=== PATIENT | female | born 1940 | race Caucasian/White ===

== ENCOUNTER → 2017-11-27 | Outpatient (RCR) | payer MEDICARE, OTHER | END | disposition home or self-care (01) | LOC: CR3 10-28 09:00 | DX: Z29.8 Encounter for other specified prophylactic measures (principal) ==

== ENCOUNTER 2017-12-27 08:30 | Outpatient (RCR) | payer MEDICARE, OTHER | END 2017-12-29 | disposition home or self-care (01) | LOC: CR3 08:30 | DX: Z29.8 Encounter for other specified prophylactic measures (principal) ==

== ENCOUNTER 2018-01-27 08:45 | Outpatient (RCR) | payer MEDICARE, OTHER | END 2018-01-29 | disposition home or self-care (01) | LOC: CR3 08:45 | DX: Z29.8 Encounter for other specified prophylactic measures (principal) ==

== ENCOUNTER 2018-02-26 10:10 | Outpatient (RCR) | payer MEDICARE, OTHER | END 2018-02-27 | disposition home or self-care (01) | LOC: CR3 10:10 | DX: Z29.8 Encounter for other specified prophylactic measures (principal) ==

== ENCOUNTER 2018-03-28 09:24 | Outpatient (RCR) | payer MEDICARE, OTHER | END 2018-03-30 | disposition home or self-care (01) | LOC: CR3 09:24 | DX: Z29.8 Encounter for other specified prophylactic measures (principal) ==

== ENCOUNTER → 2018-05-02 | Outpatient (RCR) | payer MEDICARE, OTHER | END | disposition home or self-care (01) | LOC: CR3 04-02 09:00 | DX: Z29.8 Encounter for other specified prophylactic measures (principal) ==

== ENCOUNTER → 2018-06-04 | Outpatient (RCR) | payer MEDICARE, OTHER | END | disposition home or self-care (01) | LOC: CR3 05-05 11:00 | DX: Z29.8 Encounter for other specified prophylactic measures (principal) ==

== ENCOUNTER 2018-07-04 08:51 | Outpatient (RCR) | payer MEDICARE, OTHER | END 2018-07-06 | disposition home or self-care (01) | LOC: CR3 08:51 | DX: Z29.8 Encounter for other specified prophylactic measures (principal) ==

== ENCOUNTER → 2018-08-06 | Outpatient (RCR) | payer MEDICARE, OTHER | END | disposition home or self-care (01) | LOC: CR3 07-07 10:30 | DX: Z29.8 Encounter for other specified prophylactic measures (principal) ==

== ENCOUNTER 2018-08-29 08:20 | Outpatient (RCR) | payer MEDICARE, OTHER | END 2018-09-07 | disposition home or self-care (01) | LOC: CR3 08:20 | DX: Z29.8 Encounter for other specified prophylactic measures (principal) ==

== ENCOUNTER → 2018-10-10 | Outpatient (RCR) | payer MEDICARE, OTHER | END | disposition home or self-care (01) | LOC: CR3 09-10 09:00 | DX: Z29.8 Encounter for other specified prophylactic measures (principal) ==

== ENCOUNTER → 2018-11-12 | Outpatient (RCR) | payer MEDICARE, OTHER | END | disposition home or self-care (01) | LOC: CR3 10-13 08:00 | DX: Z29.8 Encounter for other specified prophylactic measures (principal) ==

== ENCOUNTER → 2018-12-17 | Outpatient (RCR) | payer MEDICARE, OTHER | END | disposition home or self-care (01) | LOC: CR3 11-17 10:30 | DX: Z29.8 Encounter for other specified prophylactic measures (principal) ==

== ENCOUNTER → 2019-01-23 | Outpatient (RCR) | payer MEDICARE, OTHER | END | disposition home or self-care (01) | LOC: CR3 12-24 09:00 | DX: Z29.8 Encounter for other specified prophylactic measures (principal) ==

== ENCOUNTER → 2019-02-25 | Outpatient (RCR) | payer MEDICARE, OTHER | END | disposition home or self-care (01) | LOC: CR3 01-26 08:00 | DX: Z29.8 Encounter for other specified prophylactic measures (principal) ==

== ENCOUNTER 2019-03-25 08:41 | Outpatient (RCR) | payer MEDICARE, OTHER | END 2019-03-29 | disposition home or self-care (01) | LOC: CR3 08:41 | DX: Z29.8 Encounter for other specified prophylactic measures (principal) ==

== ENCOUNTER 2019-04-29 08:05 | Outpatient (RCR) | payer MEDICARE, OTHER | END 2019-04-30 | disposition home or self-care (01) | LOC: CR3 08:05 | DX: Z29.8 Encounter for other specified prophylactic measures (principal) ==

== ENCOUNTER 2019-05-29 08:40 | Outpatient (RCR) | payer MEDICARE, OTHER | END 2019-05-31 | disposition home or self-care (01) | LOC: CR3 08:40 | DX: Z29.8 Encounter for other specified prophylactic measures (principal) ==

== ENCOUNTER 2019-07-03 08:24 | Outpatient (RCR) | payer MEDICARE, OTHER | END 2019-07-04 | disposition home or self-care (01) | LOC: CR3 08:24 | DX: Z29.8 Encounter for other specified prophylactic measures (principal) ==

== ENCOUNTER → 2019-08-05 | Outpatient (RCR) | payer MEDICARE, OTHER | END | disposition home or self-care (01) | LOC: CR3 07-06 09:00 | DX: Z29.8 Encounter for other specified prophylactic measures (principal) ==

== ENCOUNTER 2019-09-04 08:28 | Outpatient (RCR) | payer MEDICARE, OTHER | END 2019-09-06 | disposition home or self-care (01) | LOC: CR3 08:28 | DX: Z29.8 Encounter for other specified prophylactic measures (principal) ==

== ENCOUNTER → 2019-10-07 | Outpatient (RCR) | payer MEDICARE, OTHER | END | disposition home or self-care (01) | LOC: CR3 09-07 10:04 | DX: Z29.8 Encounter for other specified prophylactic measures (principal) ==

== ENCOUNTER 2019-10-12 08:32 | Outpatient (RCR) | payer MEDICARE, OTHER | END 2019-11-07 | disposition home or self-care (01) | LOC: CR3 08:32 | DX: Z29.8 Encounter for other specified prophylactic measures (principal) ==

== ENCOUNTER → 2020-11-16 | Outpatient (RCR) | payer MEDICARE, OTHER | END | disposition home or self-care (01) | LOC: CR3 10-17 10:49 | DX: Z29.8 Encounter for other specified prophylactic measures (principal) ==

== ENCOUNTER 2020-11-25 10:15 | Outpatient (RCR) | payer MEDICARE, OTHER | END 2020-12-17 | disposition home or self-care (01) | LOC: CR3 10:15 | DX: Z29.8 Encounter for other specified prophylactic measures (principal) ==

== ENCOUNTER → 2021-01-03 | Outpatient (CLI) | payer MEDICARE, OTHER ==
--- NOTE | 2021-01-03 16:03 | Diagnostic Imaging Report ---
PROCEDURE: US left lower extremity venous. TECHNIQUE: Multiple real-time grayscale images were obtained over the left lower extremity in various projections. Additional duplex Doppler and color Doppler images were also obtained. INDICATION: Post total hip, leg pain. FINDINGS: Left lower extremity femoropopliteal deep venous system showed normal color flow, normal compressibility, and normal waveforms. No deep or superficial thrombus. No mass or fluid collection. IMPRESSION: Normal negative unilateral left lower extremity venous Doppler and ultrasound exam. Dictated by: Dictated on workstation # [id number]
== END ==
LOC: RAD 14:30
PROVIDERS: ATTEND Family Medicine
DX: M79.605 Pain in left leg (principal); R60.0 Localized edema

== ENCOUNTER → 2021-02-17 | Outpatient (RCR) | payer MEDICARE, OTHER | END | disposition home or self-care (01) | LOC: CR3 01-18 13:20 | DX: Z29.8 Encounter for other specified prophylactic measures (principal) ==

== ENCOUNTER 2021-02-27 06:07 | Outpatient (CLI) | payer MEDICARE, OTHER ==
[~2021-02-27] VITALS: Ht 154.9 cm; Wt 77.3 kg
[2021-02-27] MEDS ORDERED: CALC600T91 PO (10:32)
[2021-02-27] MEDS ORDERED: MV-M1TAB57 PO (10:32)
[2021-02-27] MEDS ORDERED: ATOR40TA PO (10:32)
[2021-02-27] MEDS ORDERED: KRIL1CAP PO (10:32)
[2021-02-27] MEDS ORDERED: POTA99TA21 PO (10:32)
[2021-02-27] MEDS ORDERED: PANT40TA52 PO (10:32)
[2021-02-27] MEDS ORDERED: CYAN100088 PO (10:32)
== END 2021-02-27 10:34 | disposition home or self-care (01) ==
LOC: PREOP 06:07
PROVIDERS: ATTEND Specialist
DX: Z01.818 Encounter for other preprocedural examination (principal)

== ENCOUNTER 2021-03-03 08:48 | Day surgery (SDC) | payer MEDICARE, OTHER ==
[~2021-03-03] VITALS: Ht 154.9 cm; Wt 77.3 kg
[~2021-03-03 08:48] MED LIST: ATOR40TA PO; CALC600T91 PO; CYAN100088 PO; KRIL1CAP PO; MV-M1TAB57 PO; PANT40TA52 PO; POTA99TA21 PO
[2021-03-03] MEDS ORDERED: MOXIFLOXACIN OPHTH SOLN 5 MG/ML 0.3 ML SYRINGE OP ONE (09:00)
[2021-03-03] MEDS ORDERED: LIDOCAINE PF 1% 2 ML VIAL IR PRN (09:00)
[2021-03-03] MEDS ORDERED: POVIDONE (BETADINE) OPHTH SOLN 5% 30 ML OP ONE (09:00)
[2021-03-03] MEDS ORDERED: TIMOLOL MALEATE 0.5% 5 ML (TIMOPTIC) BTL OU PRN (09:00)
[2021-03-03 09:13] VITALS: BP 165/83
[2021-03-03] MEDS: TETRACAINE 0.5% OPHTH SOLN 4 ML BTL (SINGLE DOSE ONLY) OU PRN ×4 (09:13→09:31)
[2021-03-03] MEDS: TROPICAMIDE 1% OPH SOLN (MYDRIACYL) 15 ML BTL OP SCH ×3 (09:20→09:32)
[2021-03-03] MEDS: PHENYLEPHRINE 10% OPHTH (NEO-SYN) 5 ML BTL OU SCH ×3 (09:20→09:32)
[2021-03-03] MEDS ORDERED: MIDAZOLAM 2 MG/2 ML (VERSED) VIAL ONE (09:32)
--- NOTE | 2021-03-03 09:50 | Ophthalmologist Pre-Op Note ---
Pre-Operative Progress Note H&P Reviewed The H&P was reviewed, patient examined and no changes noted. Date H&P Reviewed: Mar 03, 2021 Time H&P Reviewed: 09:49 Pre-Op Dx Cataract, Right Eye LOLIS GOMEZ MD Mar 03, 2021 09:49
--- NOTE | 2021-03-03 10:19 | Ophthalmology Operative Report ---
Cataract removal/placement IOL PREOPERATIVE DIAGNOSIS: Cataract Right Eye POSTOPERATIVE DIAGNOSIS: Cataract Right Eye PROCEDURE: Cataract removal and placement of posterior chamber implant, right eye SURGEON: Jasson Gomez ANESTHESIA: Topical with sedation COMPLICATIONS: None ESTIMATED BLOOD LOSS: Minimal DESCRIPTION OF PROCEDURE: After proper informed consent was obtained, the patient, a 80 female, was taken to the Operating Room and the right eye was anesthetized with tetracaine. The right eye was then prepped and draped in the usual manner. A wire lid speculum was placed. A paracentesis was made at the left hand position. Preservative free lidocaine was injected into the anterior chamber followed by viscoelastic. A clear corneal incision was made in the temporal position. A capsulorrhexis was preformed and the central nuclear and cortical material were removed. The posterior capsule was polished and Shahzad 19.0 AU00T0 IOL was placed into the capsular bag. The residual viscoelastic was aspirated and balanced saline solution was injected into the anterior chamber. Moxifloxacin was injected into the anterior chamber. The wound was checked and found to be water tight. The patient tolerated the procedure well without complications. JASSON GOMEZ MD Mar 03, 2021 10:19
[2021-03-03 10:27] VITALS: BP 140/86
[2021-03-03] MEDS ORDERED: acetaZOLAMIDE ER 500 MG CAP (DIAMOX SEQUELS) PO ONE (10:30)
--- NOTE | 2021-03-03 12:47 | Anesthesia-General Post-Op ---
MAC Patient Condition Mental Status/LOC: Same as Preop Cardiovascular: Satisfactory Nausea/Vomiting: Absent Respiratory: Satisfactory Pain: Controlled Complications: Absent Post Op Complications Complications None Follow Up Care/Instructions Patient Instructions None needed. Anesthesiology Discharge Order Discharge Order Patient is doing well, no complaints, stable vital signs, no apparent adverse anesthesia problems. No complications reported per nursing. ONEL SWEENEY CRNA Mar 03, 2021 12:47
== END 2021-03-03 10:28 ==
LOC: SDC 08:48
PROVIDERS: ATTEND Specialist
DX: H25.11 Age-related nuclear cataract, right eye (principal); K21.9 Gastro-esophageal reflux disease without esophagitis; M19.90 Unspecified osteoarthritis, unspecified site; E78.00 Pure hypercholesterolemia, unspecified; Z79.899 Other long term (current) drug therapy
CPT/HCPCS: 66984; V2632

== ENCOUNTER 2021-03-10 07:07 | Outpatient (CLI) | payer MEDICARE, OTHER ==
[~2021-03-10] VITALS: Ht 154.9 cm; Wt 77.3 kg
== END 2021-03-10 14:35 | disposition home or self-care (01) ==
LOC: PREOP 07:07
PROVIDERS: ATTEND Specialist
DX: Z01.818 Encounter for other preprocedural examination (principal)

== ENCOUNTER 2021-03-17 09:10 | Day surgery (SDC) | payer MEDICARE, OTHER ==
[~2021-03-17] VITALS: Ht 154.9 cm; Wt 77.3 kg
[2021-03-17 09:20] VITALS: BP 153/85
[2021-03-17] MEDS: TETRACAINE 0.5% OPHTH SOLN 4 ML BTL (SINGLE DOSE ONLY) OU PRN ×4 (09:28→09:46)
[2021-03-17] MEDS ORDERED: LIDOCAINE PF 1% 2 ML VIAL IR PRN (09:30)
[2021-03-17] MEDS ORDERED: MOXIFLOXACIN OPHTH SOLN 5 MG/ML 0.3 ML SYRINGE OP ONE (09:30)
[2021-03-17] MEDS ORDERED: POVIDONE (BETADINE) OPHTH SOLN 5% 30 ML OP ONE (09:30)
[2021-03-17] MEDS ORDERED: acetaZOLAMIDE ER 500 MG CAP (DIAMOX SEQUELS) PO ONE (09:30)
[2021-03-17] MEDS ORDERED: TIMOLOL MALEATE 0.5% 5 ML (TIMOPTIC) BTL OU PRN (09:30)
[2021-03-17] MEDS: PHENYLEPHRINE 10% OPHTH (NEO-SYN) 5 ML BTL OU SCH ×3 (09:34→09:47)
[2021-03-17] MEDS: TROPICAMIDE 1% OPH SOLN (MYDRIACYL) 15 ML BTL OP SCH ×3 (09:35→09:47)
[2021-03-17] MEDS ORDERED: MIDAZOLAM 2 MG/2 ML (VERSED) VIAL ONE (09:42)
--- NOTE | 2021-03-17 10:11 | Ophthalmologist Pre-Op Note ---
Pre-Operative Progress Note H&P Reviewed The H&P was reviewed, patient examined and no changes noted. Date H&P Reviewed: Mar 17, 2021 Time H&P Reviewed: 10:11 Pre-Op Dx Cataract, Right Eye LOLIS GOMEZ MD Mar 17, 2021 10:11
--- NOTE | 2021-03-17 10:34 | Ophthalmology Operative Report ---
Cataract removal/placement IOL PREOPERATIVE DIAGNOSIS: Cataract Left Eye POSTOPERATIVE DIAGNOSIS: Cataract Left Eye PROCEDURE: Cataract removal and placement of posterior chamber implant, left eye SURGEON: Jasson Gomez ANESTHESIA: Topical with sedation COMPLICATIONS: None ESTIMATED BLOOD LOSS: Minimal DESCRIPTION OF PROCEDURE: After proper informed consent was obtained, the patient, a 80 female, was taken to the Operating Room and the left eye was anesthetized with tetracaine. The left eye was then prepped and draped in the usual manner. A wire lid speculum was placed. A paracentesis was made at the left hand position. Preservative free lidocaine was injected into the anterior chamber followed by viscoelastic. A clear corneal incision was made in the temporal position. A capsulorrhexis was preformed and the central nuclear and cortical material were removed. The posterior capsule was polished and an Shahzad 18.5 AU00T0 was placed into the capsular bag. The residual viscoelastic was aspirated and balanced saline solution was injected into the anterior chamber. Moxifloxacin was injected into the anterior chamber. The wound was checked and found to be water tight. The patient tolerated the procedure well without complications. JASSON GOMEZ MD Mar 17, 2021 10:34
[2021-03-17 10:37] VITALS: BP 162/75
--- NOTE | 2021-03-17 10:57 | Anesthesia-General Post-Op ---
MAC Patient Condition Mental Status/LOC: Same as Preop Cardiovascular: Satisfactory Nausea/Vomiting: Absent Respiratory: Satisfactory Pain: Controlled Complications: Absent Post Op Complications Complications None Follow Up Care/Instructions Patient Instructions None needed. Anesthesiology Discharge Order Discharge Order Patient is doing well, no complaints, stable vital signs, no apparent adverse anesthesia problems. No complications reported per nursing. NITA GREGORY CRNA Mar 17, 2021 10:57
== END 2021-03-17 10:40 ==
LOC: SDC 09:10
PROVIDERS: ATTEND Specialist
DX: H25.12 Age-related nuclear cataract, left eye (principal); K21.9 Gastro-esophageal reflux disease without esophagitis; E78.00 Pure hypercholesterolemia, unspecified; M19.90 Unspecified osteoarthritis, unspecified site; Z79.899 Other long term (current) drug therapy
CPT/HCPCS: 66984; V2632

== ENCOUNTER → 2021-03-22 | Outpatient (RCR) | payer MEDICARE, OTHER | LOC: CR3 02-20 10:18 | DX: Z29.8 Encounter for other specified prophylactic measures (principal) ==

== ENCOUNTER → 2021-04-26 | Outpatient (RCR) | payer MEDICARE, OTHER | END | disposition home or self-care (01) | LOC: CR3 03-27 11:16 | DX: Z29.8 Encounter for other specified prophylactic measures (principal) ==

== ENCOUNTER 2021-05-24 10:26 | Outpatient (RCR) | payer MEDICARE, OTHER | END 2021-05-31 | disposition home or self-care (01) | LOC: CR3 10:26 | DX: Z29.8 Encounter for other specified prophylactic measures (principal) ==

== ENCOUNTER → 2021-07-05 | Outpatient (RCR) | payer MEDICARE, OTHER ==
[~2021-07-05] MED LIST changes: -POTA99TA21 PO; +POTA99TA26 PO
== END | disposition home or self-care (01) ==
LOC: CR3 06-05 11:28
DX: Z29.8 Encounter for other specified prophylactic measures (principal)

== ENCOUNTER 2021-08-25 10:44 | Outpatient (RCR) | payer MEDICARE, OTHER | END 2021-08-27 | disposition home or self-care (01) | LOC: CR3 10:44 | DX: Z29.8 Encounter for other specified prophylactic measures (principal) ==

== ENCOUNTER 2021-09-25 10:26 | Outpatient (RCR) | payer MEDICARE, OTHER | END 2021-09-27 | disposition home or self-care (01) | LOC: CR3 10:26 | DX: Z29.8 Encounter for other specified prophylactic measures (principal) ==

== ENCOUNTER 2021-11-08 09:52 | Outpatient (RCR) | payer MEDICARE, OTHER | END 2021-11-25 | disposition home or self-care (01) | LOC: CR3 09:52 | DX: Z29.8 Encounter for other specified prophylactic measures (principal) ==

== ENCOUNTER 2022-07-26 13:55 | Outpatient (RCR) | payer MEDICARE, OTHER | END 2022-07-28 | disposition home or self-care (01) | PROVIDERS: ATTEND Orthopaedic Surgery | DX: M79.89 Other specified soft tissue disorders (principal); Z96.641 Presence of right artificial hip joint ==

== ENCOUNTER 2022-08-10 13:34 | Outpatient (RCR) | payer MEDICARE, OTHER | END 2022-08-10 14:32 | disposition home or self-care (01) | PROVIDERS: ATTEND Orthopaedic Surgery | DX: Z96.643 Presence of artificial hip joint, bilateral (principal) ==

== ENCOUNTER 2022-09-26 09:38 | Outpatient (RCR) | payer MEDICARE, OTHER | END 2022-09-27 | disposition home or self-care (01) | LOC: CR3 09:38 | DX: Z29.8 Encounter for other specified prophylactic measures (principal) ==

== ENCOUNTER 2022-11-23 09:52 | Outpatient (RCR) | payer MEDICARE, OTHER | END 2022-11-25 | disposition home or self-care (01) | LOC: CR3 09:52 | DX: Z29.8 Encounter for other specified prophylactic measures (principal) ==

== ENCOUNTER → 2023-01-25 | Outpatient (RCR) | payer MEDICARE, OTHER | END | disposition home or self-care (01) | LOC: CR3 11-26 11:23 | DX: Z29.8 Encounter for other specified prophylactic measures (principal) ==

== ENCOUNTER 2023-03-25 09:45 | Outpatient (RCR) | payer MEDICARE, OTHER | END 2023-03-27 | disposition home or self-care (01) | LOC: CR3 09:45 | DX: Z29.8 Encounter for other specified prophylactic measures (principal) ==

== ENCOUNTER 2023-05-24 11:33 | Outpatient (RCR) | payer MEDICARE, OTHER | END 2023-05-27 | disposition home or self-care (01) | LOC: CR3 11:33 | DX: Z01.89 Encounter for other specified special examinations (principal) ==

== ENCOUNTER 2023-05-29 09:00 | Emergency (ER) | payer MEDICARE, OTHER ==
[~2023-05-29] VITALS: Ht 154.9 cm; Wt 77.3 kg
--- NOTE | 2023-05-29 09:09 | ED General ---
General Stated Complaint: DIZZY | LIGHTHEADED History of Present Illness Date Seen by Provider: May 29, 2023 Time Seen by Provider: 09:09 Initial Comments 82-year-old female presents because she feels just a little lightheaded/dizzy/woozy. She reports that when she got up to go the restroom around 3 AM this morning she just felt lightheaded when she stood up. She does report that yesterday she got her fifth COVID-vaccine. That yesterday afternoon she was feeling little feverish with some malaise. Patient denies any other symptoms such as chest pain, nausea, vomiting, cough. She has difficulty describing besides just being a little bit lightheaded when she stands Allergies and Home Medications Allergies Coded Allergies: Penicillins (Verified Allergy, Unknown, 05/29/23) levofloxacin (Unverified Allergy, Unknown, 05/29/23) metronidazole (Unverified Allergy, Unknown, 05/29/23) morphine (Unverified Allergy, Unknown, 05/29/23) Patient Home Medication List Home Medication List Reviewed: Yes Atorvastatin Calcium (Lipitor) Unknown Strength Tablet, 1 TAB PO DAILY, (Reported) Entered as Reported by: MAX MITCHELL on 02/27/21 1032 Calcium Carbonate (Calcium) 600 Mg Tablet, 600 MG PO DAILY, (Reported) Entered as Reported by: MAX MITCHELL on 02/27/21 1032 Cyanocobalamin (Vitamin B-12) (B-12) 1,000 Mcg Tablet, 1,000 MCG PO DAILY, (Reported) Entered as Reported by: MAX MITCHELL on 02/27/21 1032 Krill/Om3/Dha/Epa/Om6/Lip/Astx (Krill Oil 1,000 mg Softgel) 1 Each Capsule, 1 EACH PO DAILY, (Reported) Entered as Reported by: MAX MITCHELL on 02/27/21 1032 Mv-Mn/Folic Acid/Calcium/Vit K (Women's 50 Plus Multivit Tab) 1 Each Tablet, 1 EACH PO DAILY, (Reported) Entered as Reported by: MAX MITCHELL on 02/27/21 1032 Pantoprazole Sodium (Pantoprazole Sodium) 40 Mg Tablet.dr, 40 MG PO DAILY, (Reported) Entered as Reported by: MAX MITCHELL on 02/27/21 1032 Potassium Gluconate (Potassium) 99 Mg Tablet, 99 MG PO DAILY, (Reported) Entered as Reported by: MAX MITCHELL on 02/27/21 1032 Review of Systems Review of Systems Constitutional: dizziness, malaise, weakness EENTM: no symptoms reported Respiratory: no symptoms reported Cardiovascular: no symptoms reported Gastrointestinal: no symptoms reported Genitourinary: no symptoms reported Musculoskeletal: no symptoms reported Skin: no symptoms reported Psychiatric/Neurological: No Symptoms Reported Physical Exam Vital Signs Vital Signs - First Documented 05/29/23 09:05 Temp 36.6 Pulse 18 Resp 95 B/P (MAP) 190/98 (128) Pulse Ox 98 O2 Delivery Room Air Capillary Refill : Height, Weight, BMI Height: 5'1.00" Weight: 170lbs. oz. 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 Norm as Tested Skin: Normal Color, Warm/Dry Progress/Results/Core Measures Suspected Sepsis SIRS Temperature: Pulse: Respiratory Rate: Laboratory Tests 05/29/23 09:20: White Blood Count 7.0 Blood Pressure / Mean: Laboratory Tests 05/29/23 09:20: Creatinine 0.78, Platelet Count 237, Total Bilirubin 0.6 Results/Orders Lab Results Laboratory Tests Test 05/29/23 09:20 05/29/23 10:22 Range/Units White Blood Count 7.0 4.3-11.0 10^3/uL Red Blood Count 4.67 3.80-5.11 10^6/uL Hemoglobin 13.4 11.5-16.0 g/dL Hematocrit 43 35-52 % Mean Corpuscular Volume 92 80-99 fL Mean Corpuscular Hemoglobin 29 25-34 pg Mean Corpuscular Hemoglobin Concent 31 L 32-36 g/dL Red Cell Distribution Width 13.5 10.0-14.5 % Platelet Count 237 130-400 10^3/uL Mean Platelet Volume 9.5 9.0-12.2 fL Immature Granulocyte % (Auto) 0 % Neutrophils (%) (Auto) 78 H 42-75 % Lymphocytes (%) (Auto) 13 12-44 % Monocytes (%) (Auto) 8 0-12 % Eosinophils (%) (Auto) 1 0-10 % Basophils (%) (Auto) 0 0-10 % Neutrophils # (Auto) 5.5 1.8-7.8 10^3/uL Lymphocytes # (Auto) 0.9 L 1.0-4.0 10^3/uL Monocytes # (Auto) 0.5 0.0-1.0 10^3/uL Eosinophils # (Auto) 0.0 0.0-0.3 10^3/uL Basophils # (Auto) 0.0 0.0-0.1 10^3/uL Immature Granulocyte # (Auto) 0.0 0.0-0.1 10^3/uL Sodium Level 142 135-145 MMOL/L Potassium Level 4.0 3.6-5.0 MMOL/L Chloride Level 106 98-107 MMOL/L Carbon Dioxide Level 25 21-32 MMOL/L Anion Gap 11 5-14 MMOL/L Blood Urea Nitrogen 20 H 7-18 MG/DL Creatinine 0.78 0.60-1.30 MG/DL Estimat Glomerular Filtration Rate 75 BUN/Creatinine Ratio 26 Glucose Level 142 H 70-105 MG/DL Calcium Level 9.0 8.5-10.1 MG/DL Corrected Calcium 8.8 8.5-10.1 MG/DL Total Bilirubin 0.6 0.1-1.0 MG/DL Aspartate Amino Transf (AST/SGOT) 17 5-34 U/L Alanine Aminotransferase (ALT/SGPT) 15 0-55 U/L Alkaline Phosphatase 87 40-136 U/L Total Protein 7.1 6.4-8.2 GM/DL Albumin 4.3 3.2-4.5 GM/DL Urine Color YELLOW Urine Clarity CLEAR Urine pH 7.5 5-9 Urine Specific [place] 1.025 H 1.016-1.022 Urine Protein 2+ H NEGATIVE Urine Glucose (UA) NEGATIVE NEGATIVE Urine Ketones NEGATIVE NEGATIVE Urine Nitrite POSITIVE H NEGATIVE Urine Bilirubin NEGATIVE NEGATIVE Urine Urobilinogen 0.2 < = 1.0 MG/DL Urine Leukocyte Esterase TRACE H NEGATIVE Urine RBC (Auto) TRACE-I H NEGATIVE Urine RBC 2-5 H /HPF Urine WBC 10-25 H /HPF Urine Squamous Epithelial Cells 2-5 /HPF Urine Crystals NONE /LPF Urine Bacteria LARGE H /HPF Urine Casts NONE /LPF Urine Mucus NEGATIVE /LPF Urine Culture Indicated YES My Orders Orders - DOTTY AGUILERA DO Cbc And Automated Diff (05/29/23 09:14) Comprehensive Metabolic Panel (05/29/23 09:14) Ua Culture If Indicated (05/29/23 09:14) Ekg Tracing (05/29/23 09:14) Monitor-Rhythm Ecg Trace Only (05/29/23 09:14) Ed Iv/Invasive Line Start (05/29/23 09:14) Ns Iv 500 Ml (Ns Iv 500 Ml) (05/29/23 09:15) Urine Culture (05/29/23 10:22) Medications Given in ED Current Medications Medications Dose Ordered Sig/Gautam Route Start Time Stop Time Status Last Admin Dose Admin Sodium Chloride 500 ml @ 0 mls/hr Q0M ONCE IV 05/29/23 09:15 05/29/23 09:16 DC 05/29/23 09:34 500 MLS/HR Vital Signs/I&O 05/29/23 09:05 Temp 36.6 Pulse 18 Resp 95 B/P (MAP) 190/98 (128) Pulse Ox 98 O2 Delivery Room Air Capillary Refill : Progress Note : Progress Note Patient's labs were ordered reviewed and interpreted by me. Patient's urine is consistent with a likely urinary tract infection which could cause her to feel little bit febrile and dizzy. I will start her on antibiotics for her UTI. She should follow-up towards the end of the week or early next week for recheck with her primary care provider. She is stable and discharged home ECG Initial ECG Impression Date: May 29, 2023 Initial ECG Impression Time: 09:21 Initial ECG Rate: 97 Initial ECG Rhythm: Normal Sinus Initial ECG Intervals: Normal Initial ECG Impression: Normal Departure Impression Primary Impression: Acute cystitis with hematuria Disposition: 01 HOME, SELF-CARE Condition: Stable Departure-Patient Inst. Referrals: WILMER STRONG MD (PCP/Family) Primary Care Physician Patient Instructions: Urinary Tract Infection, Adult (DC) Add. Discharge Instructions: Follow-up with your primary care provider early next week for recheck of your symptoms Scripts Nitrofurantoin Monohyd/M-Cryst (Macrobid 100 mg Capsule) 100 Mg Capsule 1 TAB PO BID, #10 CAP Prov: DOTTY AGUILERA DO 05/29/23 DOTTY AGUILERA DO May 29, 2023 09:09
[2023-05-29] MEDS ORDERED: NS IV 500 ML 500 ML IV ONE (09:15)
[2023-05-29 09:33] LABS: BASOPHILS % (AUTO) 0 % (0-10); EOSINOPHILS % (AUTO) 1 % (0-10); HEMATOCRIT 43 % (35-52); HEMOGLOBIN 13.4 g/dL (11.5-16.0); LYMPHOCYTES # (AUTO) 0.9 10^3/uL (1.0-4.0); LYMPHOCYTES % (AUTO) 13 % (12-44); MEAN CORPUSCULAR HEMOGLOBIN 29 pg (25-34); MEAN CORPUSCULAR HGB CONC 31 g/dL (32-36); MEAN CORPUSCULAR VOLUME 92 fL (80-99); MEAN PLATELET VOLUME 9.5 fL (9.0-12.2); MONOCYTES # (AUTO) 0.5 10^3/uL (0.0-1.0); MONOCYTES % (AUTO) 8 % (0-12); NEUTROPHILS # (AUTO) 5.5 10^3/uL (1.8-7.8); NEUTROPHILS % (AUTO) 78 % (42-75); PLATELET COUNT 237 10^3/uL (130-400)
[2023-05-29 09:48] LABS: ALBUMIN 4.3 GM/DL (3.2-4.5)
[2023-05-29 09:51] LABS: TOTAL PROTEIN 7.1 GM/DL (6.4-8.2)
[2023-05-29 09:53] LABS: BILIRUBIN,TOTAL 0.6 MG/DL (0.1-1.0)
[2023-05-29 09:55] LABS: CREATININE SERUM 0.78 MG/DL (0.60-1.30)
[2023-05-29 10:48] LABS: BILIRUBIN,URINE NEGATIVE (NEGATIVE); CLARITY,URINE CLEAR; COLOR,URINE YELLOW; GLUCOSE, URINE (UA) NEGATIVE (NEGATIVE); KETONES,URINE NEGATIVE (NEGATIVE); NITRITE,URINE POSITIVE (NEGATIVE); PH,URINE 7.5 (5-9); PROTEIN,URINE 2+ (NEGATIVE)
[2023-05-29 10:49] LABS: BACTERIA,URINE LARGE /HPF; LEUKOCYTE ESTERASE ,URINE TRACE (NEGATIVE)
[2023-05-29] MEDS ORDERED: NITR-65 PO (11:04)
[2023-05-29 11:12] VITALS: BP 183/89
== END 2023-05-29 11:18 | disposition home or self-care (01) ==
LOC: EDUNIT# 09:00 → ER 09:02
DX: N30.01 Acute cystitis with hematuria (principal); Z88.0 Allergy status to penicillin; Z88.1 Allergy status to other antibiotic agents
CPT/HCPCS: 36415; 80053; 81000; 85025; 87077; 87088; 87186; 93005; 93041